=== PATIENT | female | born 1990 | race Two or more races ===

== ENCOUNTER 2016-11-05 14:29 | Inpatient (IN) | payer MEDICAID ==
[2016-11-05] MEDS ORDERED: Methylergonovine 0.2 MG/1 ML Amp IM PRN (14:43)
[2016-11-05] MEDS ORDERED: Lidocaine 1% 30 ML SDV INJECT PRN (14:43)
[2016-11-05] MEDS ORDERED: Misoprostol 400 MCG (4 X 100 MCG TAB) RECTAL PRN (14:43)
[2016-11-05] MEDS ORDERED: fentaNYL 100 MCG/2 ML SDV IVPUSH PRN (14:43)
[2016-11-05] MEDS ORDERED: Lactated Ringers 500 ML IV ONE (14:43)
[2016-11-05] MEDS ORDERED: Acetaminophen 325 MG Tab PO PRN (14:43)
[2016-11-05] MEDS ORDERED: Nalbuphine 10 MG/1 ML Vial IVPUSH PRN (14:43)
[2016-11-05] MEDS ORDERED: Sodium Chloride 0.9% 10 ML Syringe FLUSH PRN ×2 (14:43→17:51)
[2016-11-05] MEDS ORDERED: Carboprost Tromethamine 250 MCG/1 ML Amp IM PRN (14:43)
[2016-11-05] MEDS ORDERED: Oxytocin/Normal Saline 30 UNIT/500 ML BAG IV SCH ×2 (14:45→19:00)
--- NOTE | 2016-11-05 14:48 | PCM.LDHP ---
L&D History of Present Illness - General Date of Service: 11/05/16 Admit Problem/Dx: Patient Status Order with Admit Dx/Problem 11/05/16 14:43 Patient Status [ADT] Routine Admission Diagnosis/Problem Admission Diagnosis/Problem care - History of Present Illness Introduction:: 26-year-old at 39 weeks 6 days presents as a transfer from the clinic due to active labor. She notes she has been koby since around 4:30 this morning. The contractions of gotten closer together and stronger as the days progressed. Currently, she is koby about every 5 minutes. She is having to breathe through some but not all the contractions. Baby has been active. No vaginal bleeding or leaking of fluid. No new headaches or vision changes. 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 History: Reports: None Social & Family History - Tobacco Use Smoking Status *Q: Never Smoker Second Hand Smoke Exposure: No - Caffeine Use Caffeine Use: Reports: Soda - Alcohol Use Days Per Week of Alcohol Use: 0 - Recreational Drug Use Recreational Drug Use: No - Living Situation & Occupation Living situation: Reports: Single, with Significant Other Occupation: Unemployed H&P Review of Systems - Review of Systems: Review Of Systems: See Below General: Reports: No Symptoms HEENT: Reports: No Symptoms Pulmonary: Reports: No Symptoms Cardiovascular: Reports: No Symptoms Gastrointestinal: Reports: No Symptoms Genitourinary: Reports: No Symptoms Musculoskeletal: Reports: No Symptoms Skin: Reports: No Symptoms L&D Exam - Exam Exam: See Below - Vital Signs Weight: 68.039 kg - OB Specific Contraction Duration (sec): 60 Contraction Frequency (min): 2-4 Contraction Intensity: Moderate Movement: Active Heart Tones: Present Heart Tones per Min: 130 Heart Rate (FHR) Variability: Moderate (6-25 bmp) Presentation: Vertex - Squires Score Squires Score Consistency: Soft Squires Score Effacement: >80% Squires Score Dilation: > 5 cm Squires Score Infant's Station: -2 - Exam General: Alert, Oriented HEENT: Conjunctiva Clear, Mucosa Moist & [place], Posterior Pharynx Clear Lungs: Clear to Auscultation, Normal Respiratory Effort Cardiovascular: Regular Rate, Regular Rhythm. No: Systolic Murmur, Diastolic Murmur Genitourinary: Normal external exam Extremities: Normal Inspection. No: Edema Skin: Warm, Dry, Intact - Patient Data Result Diagrams: 11/05/16 14:58 - Problem List (1) care in third trimester SNOMED Code(s): 050901434, 07886416, 20995721, 136408384, 588719339 ICD Code: Z34.93 - ENCNTR FOR SUPRVSN OF NORMAL PREG, UNSP, THIRD TRIMESTER Status: Acute Current Visit: Yes Problem List Initiated/Reviewed/Updated: Yes Orders Last 24hrs: Active Orders 24 hr Category Date Time Status Patient Status [ADT] Routine ADT 11/05/16 14:43 Ordered Communication Order [RC] ASDIRECTED Care 11/05/16 14:43 Ordered Heart Tones [RC] PER UNIT ROUTINE Care 11/05/16 14:43 Ordered Notify Provider Vital Signs OB [RC] ASDIRECTED Care 11/05/16 14:43 Ordered Notify Provider [RC] PRN Care 11/05/16 14:43 Ordered Pump Management, Intrathecal [RC] ASDIRECTED Care 11/05/16 14:43 Ordered Up ad Roxy [RC] ASDIRECTED Care 11/05/16 14:43 Ordered Vital Signs [RC] PER UNIT ROUTINE Care 11/05/16 14:43 Ordered Clear Liquid Diet [DIET] Diet 11/05/16 Dinner Ordered CBC W/O DIFF,HEMOGRAM [HEME] Routine Lab 11/05/16 14:43 Ordered Acetaminophen [Tylenol] Med 11/05/16 14:43 Ordered 650 mg PO Q4H PRN Carboprost Tromethamine [Hemabate DS] Med 11/05/16 14:43 Ordered 250 mcg IM ASDIRECTED PRN Lactated Ringers @ 125 MLS/HR(1000ml) Med 11/05/16 14:45 Ordered Lactated Ringers [Ringers, Lactated] 1,000 ml IV ASDIRECTED Lactated Ringers [Ringers, Lactated] 500 ml Med 11/05/16 14:43 Ordered IV .BOLUS Lidocaine 1% [Xylocaine-MPF 1%] Med 11/05/16 14:43 Ordered 10 ml INJECT ASDIRECTED PRN Methylergonovine [Methergine] Med 11/05/16 14:43 Ordered 0.2 mg IM ASDIRECTED PRN Misoprostol [Cytotec] Med 11/05/16 14:43 Ordered 800 mcg RECTAL ASDIRECTED PRN Nalbuphine [Nubain] Med 11/05/16 14:43 Ordered 10 mg IVPUSH Q3H PRN Ondansetron [Zofran] Med 11/05/16 14:43 Ordered 4 mg IV Q4H PRN Oxytocin 30 Units in NS @ 2 MUNITS/MIN(500ml) Med 11/05/16 14:45 Ordered Oxytocin/Normal Saline [Pitocin in NS 30 UNIT/500 ML] 30 unit in 500 ml IV TITRATE Sodium Chloride 0.9% [Saline Flush] Med 11/05/16 14:43 Ordered 10 ml FLUSH ASDIRECTED PRN fentaNYL [Sublimaze] Med 11/05/16 14:43 Ordered 50 mcg IVPUSH Q1H PRN Saline Lock Insert [OM.PC] Routine Oth 11/05/16 14:43 Ordered Resuscitation Status Routine Resus Stat 11/05/16 14:43 Ordered Medication Orders Acetaminophen (Tylenol) 650 mg PO Q4H PRN PRN Reason: Pain (Mild 1-3) and fever Carboprost Tromethamine (Hemabate Ds) 250 mcg IM ASDIRECTED PRN PRN Reason: HEMORRHAGE Fentanyl (Sublimaze) 50 mcg IVPUSH Q1H PRN PRN Reason: Pain (moderate 4-6) Lactated Ringer's (Ringers, Lactated) 500 mls @ 999 mls/hr IV .BOLUS ONE Stop: 11/05/16 15:13 Lactated Ringer's (Ringers, Lactated) 1,000 mls @ 125 mls/hr IV ASDIRECTED SHEILA Oxytocin/Sodium Chloride (Pitocin In Ns 30 Unit/500 Ml) 30 unit in 500 mls @ 2 mls/hr IV TITRATE SHEILA; 2 MUNITS/MIN PRN Reason: Protocol Lidocaine HCl (Xylocaine-Mpf 1%) 10 ml INJECT ASDIRECTED PRN PRN Reason: Perineal Repair Methylergonovine Maleate (Methergine) 0.2 mg IM ASDIRECTED PRN PRN Reason: Hemorrhage Misoprostol (Cytotec) 800 mcg RECTAL ASDIRECTED PRN PRN Reason: Hemorrhage Nalbuphine HCl (Nubain) 10 mg IVPUSH Q3H PRN PRN Reason: Pain (moderate 4-6) Ondansetron HCl (Zofran) 4 mg IV Q4H PRN PRN Reason: Nausea/Vomiting Sodium Chloride (Saline Flush) 10 ml FLUSH ASDIRECTED PRN PRN Reason: Keep Vein Open Assessment/Plan Comment:: 26-year-old at 39w6d gestation in active labor 1. Admit to L&D 2. Initiate routine intrapartum orders 3. AROM when able 4. Patient does desire intrathecal 5. Expectant management. Anticipate Samreen Ramírez MD ADDENDUM: Patient checked upon arrival to the floor. 8/90/0. AROM for small clear fluid. Will receive intrathecal. Samreen Ramírez MD
[2016-11-05] MEDS: Lactated Ringers 1,000 ML IV SCH ×2 (15:17→16:06)
[2016-11-05] MEDS: Ondansetron 4 MG/2 ML SDV IV PRN ×2 (15:19→19:47)
[2016-11-05] MEDS ORDERED: fentaNYL 100 MCG/2 ML SDV ONE (15:29)
--- NOTE | 2016-11-05 15:54 | PCM.PREANE ---
Preanesthetic Assessment - Procedure Proposed Procedure: Term in labor requesting Spinal narcotic for labor pain control - Anesthesia/Transfusion/Family Hx Anesthesia History: Prior Anesthesia Without Reaction Family History of Anesthesia Reaction: No Transfusion History: No Prior Transfusion(s) Intubation History: Unknown - Review of Systems General: No Symptoms Pulmonary: No Symptoms Cardiovascular: No Symptoms Gastrointestinal: No symptoms Neurological: No Symptoms Other: Reports: None - Physical Assessment NPO Status Date: 11/05/16 NPO Status Time: 12:00 Pulse: 78 O2 Sat by Pulse Oximetry: 99 Respiratory Rate: 18 Blood Pressure: 104/62 Temperature: 97.6 F Height: 1.68 m Weight: 68.039 kg ASA Class: 2 Mental Status: Alert & Oriented x3 Airway Class: Mallampati = 2 Dentition: Reports: Normal Dentition Thyro-Mental Finger Breadths: 3 Mouth Opening Finger Breadths: 4 ROM/Head Extension: Full Lungs: Clear to auscultation, Normal respiratory effort Cardiovascular: Regular Rate, Regular Rhythm - Lab Values: Laboratory Last Values WBC 7.7 10^3/uL (5.0-10.0) 11/05/16 14:58 RBC 3.97 10^6/uL (4.2-5.4) L 11/05/16 14:58 Hgb 12.0 g/dL (12.0-16.0) 11/05/16 14:58 Hct 36.5 % (37.0-47.0) L 11/05/16 14:58 MCV 91.9 fL (80-100) 11/05/16 14:58 MCH 30.2 pg (27.0-34.0) 11/05/16 14:58 MCHC 32.9 g/dL (33.0-35.0) L 11/05/16 14:58 Plt Count 155 10^3/uL (150-450) 11/05/16 14:58 - Allergies Allergies/Adverse Reactions: Allergies Allergy/AdvReac Type Severity Reaction Status Date / Time No Known Allergies Allergy Verified 11/05/16 15:28 - Blood Blood Available: No Product(s) Available: None - Anesthesia Plan Pre-Op Medication Ordered: None - Acknowledgements Anesthesia Type Planned: Spinal Pt an Appropriate Candidate for the Planned Anesthesia: Yes Alternatives and Risks of Anesthesia Discussed w Pt/Guardian: Yes Pt/Guardian Understands and Agrees with Anesthesia Plan: Yes Additional Comments: Patient ID'd chart reviewed, R/B of spinal narcotic discussed with patient and she agreed and signed the consent. 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 History: Reports: None Neurological History: Reports: None Psychiatric History: Reports: None Endocrine/Metabolic History: Reports: None Hematologic History: Reports: None Immunologic History: Reports: None Oncologic (Cancer) History: Reports: None Dermatologic History: Reports: None - Infectious Disease History Infectious Disease History: Reports: None - Past Surgical History Head Surgeries/Procedures: Reports: None - SUBSTANCE USE Smoking Status *Q: Never Smoker Second Hand Smoke Exposure: No Days Per Week of Alcohol Use: 0 Recreational Drug Use History: No - HOME MEDS Home Medications: Home Meds [id number]/Iron Fumarate/FA/DSS [ 19 Tablet] 1 tab PO DAILY 07/07/14 [ History] - CURRENT (IN HOUSE) MEDS Current Meds: Current Medications Acetaminophen (Tylenol) 650 mg PO Q4H PRN PRN Reason: Pain (Mild 1-3) and fever Carboprost Tromethamine (Hemabate Ds) 250 mcg IM ASDIRECTED PRN PRN Reason: HEMORRHAGE Fentanyl (Sublimaze) 50 mcg IVPUSH Q1H PRN PRN Reason: Pain (moderate 4-6) Lactated Ringer's (Ringers, Lactated) 1,000 mls @ 125 mls/hr IV ASDIRECTED SHEILA Last Admin: 11/05/16 15:17 Dose: 125 mls/hr Oxytocin/Sodium Chloride (Pitocin In Ns 30 Unit/500 Ml) 30 unit in 500 mls @ 2 mls/hr IV TITRATE SHEILA; 2 MUNITS/MIN PRN Reason: Protocol Lidocaine HCl (Xylocaine-Mpf 1%) 10 ml INJECT ASDIRECTED PRN PRN Reason: Perineal Repair Methylergonovine Maleate (Methergine) 0.2 mg IM ASDIRECTED PRN PRN Reason: Hemorrhage Misoprostol (Cytotec) 800 mcg RECTAL ASDIRECTED PRN PRN Reason: Hemorrhage Nalbuphine HCl (Nubain) 10 mg IVPUSH Q3H PRN PRN Reason: Pain (moderate 4-6) Ondansetron HCl (Zofran) 4 mg IV Q4H PRN PRN Reason: Nausea/Vomiting Last Admin: 11/05/16 15:19 Dose: 4 mg Sodium Chloride (Saline Flush) 10 ml FLUSH ASDIRECTED PRN PRN Reason: Keep Vein Open Discontinued Medications Fentanyl (Sublimaze) Confirm Administered Dose 100 mcg .ROUTE .STK-MED ONE Stop: 11/05/16 15:30 Lactated Ringer's (Ringers, Lactated) 500 mls @ 999 mls/hr IV .BOLUS ONE Stop: 11/05/16 15:13 Sufentanil Citrate (Sufenta) Confirm Administered Dose 50 mcg .ROUTE .STK-MED ONE Stop: 11/05/16 15:30
--- NOTE | 2016-11-05 16:02 | PCM.PRNOTE ---
- Free Text/Narrative Note: In sitting position, pre-loaded with 750 ml of LR, L3-4 inner space ID's, Sterile prep with Betadine and draped, skin wheel with 1% lidocaine, 24 G pencan spinal needle advanced into SA space via 18 G introducer, negative blood/ Parasthesia positive CSF. 3 mg Hyperbaric Marcaine + 20 mcg sufentanyl + 30 mcg fentanyl + epinepherine wash + 1.5 ml preservative free normal saline. Positive swirl x2. Patient achieved immediate pain relief. BP 104/44, P 66, RR 16, SpO2 99 on RA, Temp 97.3. Level T10 Bilateral.
[2016-11-05] MEDS ORDERED: Simethicone 80 MG Tab.Chew PO PRN (17:51)
[2016-11-05] MEDS ORDERED: Docusate Sodium 100 MG Cap PO PRN (17:51)
[2016-11-05] MEDS ORDERED: Oxytocin 10 Units/1 ML SDV IM PRN (17:51)
[2016-11-05] MEDS ORDERED: Benzocaine/Menthol 20%-0.5% Spray 56 GM Canister TOP PRN (17:51)
--- NOTE | 2016-11-05 17:59 | PCM.DEL ---
L & D Note - General Info Date of Service: 11/05/16 Mother's Due Date: 11/06/16 - Delivery Note Labor: spontaneous, augmented by ARM Delivery Outcome: Livebirth Delivery Method: Spontaneous Vaginal Delivery Presentation: Right Occiput Anterior (IMANI) Nuchal Cord: Present, Reduced Anesthesia Type: Intrathecal Amniotic Fluid Description: Clear Episiotomy Type: None Laceration: 2nd degree, perineal Suture type: vicryl Suture size: 3-0 Placenta: intact, spontaneous Cord: 3 vessels Estimated Blood Loss: 100 Resuscitation Needed: No Score 1 min: 8 Score 5 min: 9 Delivery Comments (Free Text/Narrative):: 26-year-old, now , presented to L&D from clinic with active labor at 5 cm dilated at 39w6d. Patient rapidly progressed to 8 cm. AROM was performed for clear fluid. Patient received an intrathecal for pain control. She progressed to complete dilation about 2 hours after admission. She pushed for approximately 15 minutes and delivered a viable male infant with Apgars of 8 and 9 at 1 and 5 minutes respectively. A loose nuchal cord was reduced. A small second degree perineal laceration was repeated with a figure-of-8 stitch. The placenta delivered a short time later and was noted to be intact. 3 vessel cord was noted. Uterus was firm and bleeding was appropriate. Patient tolerated the procedure well, and there were no immediate complications. Samreen Ramírez MD - General Info Date of Service: 11/05/16 - Patient Data Vitals - most recent: Last Vital Signs Temp 36.9 C 11/05/16 16:07 Pulse 68 11/05/16 16:48 Resp 16 11/05/16 16:26 BP 115/59 L 11/05/16 16:48 Pulse Ox 98 11/05/16 16:48 Weight - most recent: 68.039 kg I&O - last 24 hours: Intake & Output 11/05/16 11/05/16 11/05/16 06:59 14:59 22:59 Intake Total 1000 Balance 1000 Lab Results last 24 hrs: Laboratory Results - last 24 hr 11/05/16 Range/Units 14:58 WBC 7.7 (5.0-10.0) 10^3/uL RBC 3.97 L (4.2-5.4) 10^6/uL Hgb 12.0 (12.0-16.0) g/dL Hct 36.5 L (37.0-47.0) % MCV 91.9 (80-100) fL MCH 30.2 (27.0-34.0) pg MCHC 32.9 L (33.0-35.0) g/dL Plt Count 155 (150-450) 10^3/uL Med Orders - Current: Current Medications Acetaminophen (Tylenol) 650 mg PO Q4H PRN PRN Reason: Pain (Mild 1-3) and fever Carboprost Tromethamine (Hemabate Ds) 250 mcg IM ASDIRECTED PRN PRN Reason: HEMORRHAGE Oxytocin/Sodium Chloride (Pitocin In Ns 30 Unit/500 Ml) 30 unit in 500 mls @ 2 mls/hr IV TITRATE SHEILA; 2 MUNITS/MIN PRN Reason: Protocol Last Admin: 11/05/16 17:36 Dose: 500 munits/min, 500 mls/hr Methylergonovine Maleate (Methergine) 0.2 mg IM ASDIRECTED PRN PRN Reason: Hemorrhage Misoprostol (Cytotec) 800 mcg RECTAL ASDIRECTED PRN PRN Reason: Hemorrhage Ondansetron HCl (Zofran) 4 mg IV Q4H PRN PRN Reason: Nausea/Vomiting Last Admin: 11/05/16 15:19 Dose: 4 mg Sodium Chloride (Saline Flush) 10 ml FLUSH ASDIRECTED PRN PRN Reason: Keep Vein Open Discontinued Medications Fentanyl (Sublimaze) 50 mcg IVPUSH Q1H PRN PRN Reason: Pain (moderate 4-6) Fentanyl (Sublimaze) Confirm Administered Dose 100 mcg .ROUTE .STK-MED ONE Stop: 11/05/16 15:30 Lactated Ringer's (Ringers, Lactated) 500 mls @ 999 mls/hr IV .BOLUS ONE Stop: 11/05/16 15:13 Lactated Ringer's (Ringers, Lactated) 1,000 mls @ 125 mls/hr IV ASDIRECTED SHEILA Last Admin: 11/05/16 16:06 Dose: 125 mls/hr Lidocaine HCl (Xylocaine-Mpf 1%) 10 ml INJECT ASDIRECTED PRN PRN Reason: Perineal Repair Nalbuphine HCl (Nubain) 10 mg IVPUSH Q3H PRN PRN Reason: Pain (moderate 4-6) Sufentanil Citrate (Sufenta) Confirm Administered Dose 50 mcg .ROUTE .STK-MED ONE Stop: 11/05/16 15:30 - Problem List & Annotations (1) care in third trimester SNOMED Code(s): 341500156, 85751304, 59136511, 028308721, 915748281 Code(s): Z34.93 - ENCNTR FOR SUPRVSN OF NORMAL PREG, UNSP, THIRD TRIMESTER Status: Acute Current Visit: Yes (2) (normal spontaneous vaginal delivery) SNOMED Code(s): 36868218 Code(s): O80 - ENCOUNTER FOR FULL-TERM UNCOMPLICATED DELIVERY Status: Acute Current Visit: Yes (3) Perineal laceration during delivery SNOMED Code(s): 885207801 Code(s): O70.9 - PERINEAL LACERATION DURING DELIVERY, UNSPECIFIED Status: Acute Current Visit: Yes - Problem List Review Problem List Initiated/Reviewed/Updated: Yes - My Orders Last 24 Hours: My Active Orders 11/05/16 14:43 Patient Status [ADT] Routine Notify Provider Vital Signs OB [RC] ASDIRECTED Vital Signs [RC] PER UNIT ROUTINE Acetaminophen [Tylenol] 650 mg PO Q4H PRN Carboprost Tromethamine [Hemabate DS] 250 mcg IM ASDIRECTED PRN Methylergonovine [Methergine] 0.2 mg IM ASDIRECTED PRN Misoprostol [Cytotec] 800 mcg RECTAL ASDIRECTED PRN Ondansetron [Zofran] 4 mg IV Q4H PRN Sodium Chloride 0.9% [Saline Flush] 10 ml FLUSH ASDIRECTED PRN Saline Lock Insert [OM.PC] Routine Resuscitation Status Routine 11/05/16 14:45 Oxytocin/Normal Saline [Pitocin in NS 30 UNIT/500 ML] 30 unit in 500 ml IV TITRATE 11/05/16 17:51 Up ad Roxy [RC] ASDIRECTED Vital Signs [RC] PFP Benzocaine/Menthol [D[facility] [place]] See Dose Instructions TOP Q4H PRN Docusate Sodium [Colace] 100 mg PO BID PRN Ibuprofen [Motrin] 800 mg PO Q8H PRN Oxytocin [Pitocin] 10 unit IM ONETIME PRN Simethicone 80 mg PO Q4H PRN Sodium Chloride 0.9% [Saline Flush] 10 ml FLUSH ASDIRECTED PRN Assess Lochia [WOMSER] Per Unit Routine Assess Uterine Involution [WOMSER] Per Unit Routine Breast Pump [WOMSER] Per Unit Routine Ice Therapy [OM.PC] Per Unit Routine Perineal Care [OM.PC] Per Unit Routine Saline Lock Insert [OM.PC] Urgent Sitz Bath [OM.PC] Per Unit Routine 11/05/16 Breakfast Regular Diet [DIET] 11/06/16 09:00 Vit with Ca/FA/Iron [ Plus Iron] 1 each PO DAILY - Assessment Assessment:: 26-year-old now status post at 39w6d - Plan Plan:: 1. Initiate routine orders 2. Mother plans to breastfeed 3. Anticipate discharge 11/07/16 Samreen Ramírez MD
[2016-11-05] MEDS: Ibuprofen 800 MG Tab PO PRN (19:47)
[2016-11-05] MEDS: Acetaminophen/HYDROcodone 325-10 MG Tab PO PRN (20:32)
[2016-11-06] MEDS: Acetaminophen/HYDROcodone 325-10 MG Tab PO PRN ×2 (00:20→05:16)
[2016-11-06] MEDS: Ibuprofen 800 MG Tab PO PRN (05:13)
--- NOTE | 2016-11-06 06:10 | PCM.POSTAN ---
POST ANESTHESIA ASSESSMENT - MENTAL STATUS Mental Status: alert, oriented - RESPIRATORY Respiratory Status: respiratory rate WNL, airway patent, O2 saturation stable - CARDIOVASCULAR CV Status: pulse rate WNL, blood pressure stable - GASTROINTESTINAL GI Status: no symptoms - POST OP HYDRATION Hydration Status: adequate & stable - OBSERVATIONS Free Text/Narrative:: Patient went home after delivery last night, thus I was unable to assess patient. . Per her nurses she did very well and was pleased with her anesthesia plan of care.
[2016-11-06] MEDS ORDERED: Prenatal Multivitamin with Calcium/Folic Acid/Iron Tab PO SCH (09:00)
[2016-11-06 09:04] VITALS: BP 137/55
--- NOTE | 2016-11-06 15:16 | PCM.DCSUM1 ---
Discharge Summary - Hospital Course Free Text/Narrative:: 26-year-old now day #1 status post normal spontaneous vaginal delivery at 39 weeks 6 days gestation - Discharge Data Discharge Date: 11/06/16 Discharge Disposition: Home, Self-Care 01 Condition: Good - Discharge Diagnosis/Problem(s) (1) care in third trimester SNOMED Code(s): 933680804, [id number], [id number], [id number], [id number] ICD Code: Z34.93 - ENCNTR FOR SUPRVSN OF NORMAL PREG, UNSP, THIRD TRIMESTER Status: Acute Current Visit: Yes (2) (normal spontaneous vaginal delivery) SNOMED Code(s): 21836129 ICD Code: O80 - ENCOUNTER FOR FULL-TERM UNCOMPLICATED DELIVERY Status: Acute Current Visit: Yes (3) Perineal laceration during delivery SNOMED Code(s): 602085854 ICD Code: O70.9 - PERINEAL LACERATION DURING DELIVERY, UNSPECIFIED Status: Acute Current Visit: Yes - Patient Summary/Data Operative Procedure(s) Performed: None Complications: None Consults: Consultations 11/05/16 18:00 Consult to Law Firm Partner [CONS] Routine Labs Pending at D/C: None Recommended Follow-up Testing/Procedures: None Planned Operative Procedure(s) after DC: None Hospital Course: Unremarkable. Please see subjective section for more details. - Patient Instructions Diet: Usual Diet as Tolerated Activity: No Lifting Over 20 Pounds Driving: May Drive Today Showering/Bathing: May Shower Notify Provider of: Fever, Increased Pain, Swelling and Redness, Nausea and/or Vomiting - Discharge Plan Home Medications: Home Meds [id number]/Iron Fumarate/FA/DSS [ 19 Tablet] 1 tab PO DAILY 07/07/14 [ History] Acetaminophen [Tylenol] 650 mg PO Q4H PRN #0 tablet 11/06/16 [Rx] Docusate Sodium [Colace] 100 mg PO BID PRN #0 cap 11/06/16 [Rx] Ibuprofen [IJD: Ibuprofen] 800 mg PO Q8H PRN #0 tablet 11/06/16 [Rx] Patient Handouts: Home Care Instructions for Mom, Vaginal Delivery, Care After Referrals: Samreen Ramírez MD [Primary Care Provider] - (6 weeks for visit) - Discharge Summary/Plan Comment DC Time >30 min.: No Discharge Summary/Plan Comment: Discharge home today. Follow-up in 6 weeks for visit. Reasons to return sooner were discussed with the patient. She voiced understanding, and all questions were answered. Samreen Ramírez MD - General Info Date of Service: 11/06/16 Subjective Update: Patient is doing well. She did have some increased bleeding for a couple hours after delivery yesterday evening. This has since resolved. She is ambulating. She is tolerating a normal diet. She has been voiding without difficulty. She is passing gas but has not yet had a bowel movement. No dizziness or lightheadedness with ambulation. No concerns per patient or per nursing. Functional Status: Reports: pain controlled, tolerating diet, ambulating, urinating - Review of Systems General: Reports: No Symptoms HEENT: Reports: no symptoms Pulmonary: Reports: no symptoms Cardiovascular: Reports: No Symptoms Gastrointestinal: Reports: No symptoms Genitourinary: Reports: no symptoms Musculoskeletal: Reports: no symptoms - Patient Data Vitals - Most Recent: Last Vital Signs Temp 36.6 C 11/06/16 08:00 Pulse 77 11/06/16 08:00 Resp 18 11/06/16 08:00 BP 137/55 L 11/06/16 08:00 Pulse Ox 99 11/06/16 08:00 Weight - Most Recent: 68.039 kg Lab Results - Last 24 hrs: Laboratory Results - last 24 hr 11/05/16 Range/Units 14:58 WBC 7.7 (5.0-10.0) 10^3/uL RBC 3.97 L (4.2-5.4) 10^6/uL Hgb 12.0 (12.0-16.0) g/dL Hct 36.5 L (37.0-47.0) % MCV 91.9 (80-100) fL MCH 30.2 (27.0-34.0) pg MCHC 32.9 L (33.0-35.0) g/dL Plt Count 155 (150-450) 10^3/uL Med Orders - Current: Current Medications Acetaminophen (Tylenol) 650 mg PO Q4H PRN PRN Reason: Pain (Mild 1-3) and fever Hydrocodone Bitart/Acetaminophen ([place] 325-10 Mg) 1 tab PO Q4H PRN PRN Reason: Pain Last Admin: 11/06/16 05:16 Dose: 1 tab Benzocaine/Menthol (Dermoplast Pain Relief [place]) 0 gm TOP Q4H PRN PRN Reason: Perineal comfort measures Carboprost Tromethamine (Hemabate Ds) 250 mcg IM ASDIRECTED PRN PRN Reason: HEMORRHAGE Docusate Sodium (Colace) 100 mg PO BID PRN PRN Reason: Constipation Last Admin: 11/06/16 08:43 Dose: 100 mg Oxytocin/Sodium Chloride (Pitocin In Ns 30 Unit/500 Ml) 30 unit in 500 mls @ 2 mls/hr IV TITRATE SHEILA; 2 MUNITS/MIN PRN Reason: Protocol Last Titration: 11/05/16 18:46 Dose: 125 mls/hr Oxytocin/Sodium Chloride (Pitocin In Ns 30 Unit/500 Ml) 30 unit in 500 mls @ 500 mls/hr IV TITRATE SHEILA; 500 MUNITS/MIN PRN Reason: Protocol Ibuprofen (Motrin) 800 mg PO Q8H PRN PRN Reason: Mild Pain or Fever Last Admin: 11/06/16 05:13 Dose: 800 mg Methylergonovine Maleate (Methergine) 0.2 mg IM ASDIRECTED PRN PRN Reason: Hemorrhage Misoprostol (Cytotec) 800 mcg RECTAL ASDIRECTED PRN PRN Reason: Hemorrhage Ondansetron HCl (Zofran) 4 mg IV Q4H PRN PRN Reason: Nausea/Vomiting Last Admin: 11/05/16 19:47 Dose: 4 mg Oxytocin (Pitocin) 10 unit IM ONETIME PRN PRN Reason: Bleeding Prenat Multivit/Building Supp[employer] Sales[employer]/Iron/Folic Ac ( Plus Iron) 1 each PO DAILY SHEILA Last Admin: 11/06/16 08:43 Dose: 1 each Simethicone (Simethicone) 80 mg PO Q4H PRN PRN Reason: Gas Sodium Chloride (Saline Flush) 10 ml FLUSH ASDIRECTED PRN PRN Reason: Keep Vein Open Sodium Chloride (Saline Flush) 10 ml FLUSH ASDIRECTED PRN PRN Reason: Keep Vein Open Discontinued Medications Fentanyl (Sublimaze) 50 mcg IVPUSH Q1H PRN PRN Reason: Pain (moderate 4-6) Fentanyl (Sublimaze) Confirm Administered Dose 100 mcg .ROUTE .STK-MED ONE Stop: 11/05/16 15:30 Last Admin: 11/05/16 19:53 Dose: Not Given Lactated Ringer's (Ringers, Lactated) 500 mls @ 999 mls/hr IV .BOLUS ONE Stop: 11/05/16 15:13 Last Admin: 11/05/16 19:52 Dose: Not Given Lactated Ringer's (Ringers, Lactated) 1,000 mls @ 125 mls/hr IV ASDIRECTED SHEILA Last Admin: 11/05/16 16:06 Dose: 125 mls/hr Lidocaine HCl (Xylocaine-Mpf 1%) 10 ml INJECT ASDIRECTED PRN PRN Reason: Perineal Repair Nalbuphine HCl (Nubain) 10 mg IVPUSH Q3H PRN PRN Reason: Pain (moderate 4-6) Sufentanil Citrate (Sufenta) Confirm Administered Dose 50 mcg .ROUTE .STK-MED ONE Stop: 11/05/16 15:30 Last Admin: 11/05/16 19:53 Dose: Not Given - Exam General: Reports: alert, oriented HEENT: Reports: Mucous membr. moist/pink Lungs: Reports: Clear to auscultation, Normal respiratory effort Cardiovascular: Reports: Regular Rate, Regular Rhythm, No Murmurs Skin: Reports: warm, dry, intact *Q Meaningful Use (DIS) - VTE *Q VTE Criteria *Q: - Stroke *Q Stroke Criteria *Q: - AMI *Q AMI Criteria *Q:
== END 2016-11-06 18:15 | disposition home or self-care (01) | DRG 775 ==
LOC: DL.OBCHECK 14:29 → DL.OB 14:43 → OBSVTOIN 17:29 → DL.OB 17:29
PROVIDERS: ADMIT Family Medicine; ATTEND Family Medicine
PROC: 10E0XZZ Delivery of Products of Conception, External Approach (ICD-10-PCS; principal; 2016-11-05)
PROC: 0KQM0ZZ Repair Perineum Muscle, Open Approach (ICD-10-PCS; 2016-11-05)
PROC: 10907ZC Drainage of Amniotic Fluid, Therapeutic from Products of Conception, Via Natural or Artificial Opening (ICD-10-PCS; 2016-11-05)
DX: O70.1 Second degree perineal laceration during delivery (principal); Z37.0 Single live birth; Z3A.39 39 weeks gestation of pregnancy
CPT/HCPCS: 01967; 36415; 85027; A9270-GY; J2405; J2590; J7120

== ENCOUNTER 2017-07-02 17:11 | Emergency (ER) | payer MEDICAID ==
[2017-07-02 17:31] VITALS: BP 131/79
== END 2017-07-02 18:13 | disposition left against medical advice (07) ==
LOC: DL.ED 17:11
DX: Z53.20 Procedure and treatment not carried out because of patient's decision for unspecified reasons (principal)